=== PATIENT | female | born 1950 | race Caucasian/White ===

== ENCOUNTER 2018-12-28 20:11 | Emergency (ER) | payer MEDICARE, OTHER ==
[~2018-12-28] VITALS: Ht 162.6 cm; Wt 108.9 kg
[2018-12-28] MEDS ORDERED: SODIUM BICARBONATE 8.4% INJ 50ML SYRINGE IV ONE (20:16)
[2018-12-28] MEDS ORDERED: EPINEPHrine HCL 1 MG/10 ML SYRG IV ONE (20:16)
[2018-12-28] MEDS ORDERED: NOREPINEPHRINE 8 MG/250ML KIT 250 ML IV ONE ×2 (20:27→21:05)
[2018-12-28 20:30] VITALS: BP 0/0
[2018-12-28] MEDS ORDERED: SODIUM CHLORIDE 0.9% 1,000 ML IV ONE (20:34)
[2018-12-28] MEDS ORDERED: EPINEPHrine HCL 1 MG/10 ML SYRG ONE ×3 (20:44→21:35)
[2018-12-28] MEDS ORDERED: TETANUS-DIPTH-ACEL PERTUSSIS 0.5ML SYRG IM ONE (20:45)
[2018-12-28] MEDS ORDERED: ceFAZolin IM 1GM/2.5ML STERILE WATER IM ONE (20:45)
[2018-12-28] MEDS ORDERED: EPINEPHrine HCL 250 ML IV ONE (21:04)
[2018-12-28] MEDS ORDERED: DOPamine 1600MCG/ML D5W 250 ML IV ONE (21:05)
== END 2018-12-29 01:57 | disposition expired ==
LOC: EDSEX 20:11 → EDBD 20:11 → ER 20:15
DX: I46.8 Cardiac arrest due to other underlying condition (principal); S22.42XA Multiple fractures of ribs, left side, initial encounter for closed fracture; S81.811A Laceration without foreign body, right lower leg, initial encounter; S27.321A Contusion of lung, unilateral, initial encounter; V43.53XA Car driver injured in collision with pick-up truck in traffic accident, initial encounter; Y93.89 Activity, other specified; Y92.488 Other paved roadways as the place of occurrence of the external cause; Y99.8 Other external cause status
CPT/HCPCS: 36430; 71045; 86900; 86901; 86920; 92950; 94761; 99291; J0171; J0690; J1265; P9016